=== PATIENT | male | born 2000 | race Caucasian/White ===

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

== ENCOUNTER 2023-07-04 23:12 | Emergency (ER) | payer OTHER ==
[~2023-07-04] VITALS: Ht 170.2 cm; Wt 79.4 kg
[2023-07-04 23:47] VITALS: BP 131/81
[2023-07-05] MEDS ORDERED: Tetanus/Diphtheria/Pertussis (Acell) ADULT Vaccine 0.5 ML IM ONE (00:30)
[2023-07-05] MEDS ORDERED: LIDOCAINE 1% INJ 20 ML VIAL IJ ONE (01:00)
[2023-07-05] MEDS ORDERED: RX-CEPHALEXIN (KEFLEX) 250 MG CAP PPK#4 PO STA (01:19)
[2023-07-05] MEDS ORDERED: CEPH500T PO (01:19)
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
--- NOTE | 2023-07-05 06:19 | Diagnostic Imaging Report ---
PROCEDURE: CT head and CT cervical spine without contrast. TECHNIQUE: Multiple contiguous axial images were obtained through the brain and cervical spine without the use of intravenous contrast. Sagittal and coronal reformations through the cervical spine were then performed. Auto Exposure Controls were utilized during the CT exam to meet ALARA standards for radiation dose reduction. INDICATION: Head and neck injury with pain. COMPARISON: None. DISCUSSION: Head: No intracranial hemorrhage, mass, midline shift, or hydrocephalus. The ventricles and sulci are normal size and configuration for age. The visualized orbits, paranasal sinuses, mastoid air cells, and calvarium are unremarkable. Cervical spine: No acute fracture, subluxation, or other osseous abnormality identified. No significant degenerative disease. Alignment is anatomic. Soft tissues are unremarkable. IMPRESSION: 1. Negative CT of the head and neck. 2. Agree with preliminary report. Dictated by: Dictated on workstation # [id number]
== END 2023-07-05 01:35 | disposition home or self-care (01) ==
LOC: EDUNIT# 23:12 → ER 23:16
DX: S09.90XA Unspecified injury of head, initial encounter (principal); S01.01XA Laceration without foreign body of scalp, initial encounter; Z23 Encounter for immunization; Y04.8XXA Assault by other bodily force, initial encounter
CPT/HCPCS: 12002; 70450; 72125; 90471; 90715

== ENCOUNTER 2023-07-18 09:28 | Emergency (ER) | payer OTHER ==
[~2023-07-18] VITALS: Ht 170.2 cm; Wt 79.4 kg
[~2023-07-18 09:28] MED LIST changes: +CEPH500T PO
[2023-07-18 09:48] VITALS: BP 129/76
== END 2023-07-18 09:52 | disposition home or self-care (01) ==
LOC: EDUNIT# 09:28 → ER 09:31
DX: Z48.02 Encounter for removal of sutures (principal)